=== PATIENT | male | born 1945 | race Caucasian/White ===

== ENCOUNTER 2016-05-09 20:56 | Emergency (ER) | payer MEDICARE, OTHER ==
[2016-05-09 21:02] VITALS: BP 142/71; PULSE 60; RESP 18; TEMP 98; O2SAT 94
[2016-05-09] MEDS ORDERED: DIPHTH/TETANUS/ACEL PERTUSSIS (BOOSTER) 0.5 ML VIAL/PFS IM ONE (21:15)
[2016-05-09] MEDS ORDERED: ceFAZolin INJ 1,000 MG in ceFAZolin 2 GM PREMIX 50 ML IV ONE (21:15)
[2016-05-09] MEDS ORDERED: MORPHINE SULFATE 4 MG/ML INJ IV ONE (21:15)
[2016-05-09] MEDS ORDERED: SODIUM CHLORIDE 0.9% FLUSH 5 ML FLUSH IVF PRN (21:15)
[2016-05-09] MEDS ORDERED: SYMB80AE INH (21:38)
[2016-05-09] MEDS ORDERED: LISI-519 PO (21:38)
[2016-05-09] MEDS ORDERED: MOBI7.5T PO (21:38)
[2016-05-09 21:39] VITALS: RESP 18; O2SAT 96
[2016-05-09 21:41] LABS: AUTOMATED NEUTROPHIL # 2.9 TH/MM3 (1.8-7.7); BASOPHIL % 0.5 % (0.0-2.0); EOSINOPHIL # 0.7 TH/MM3 (0-0.4); EOSINOPHIL % 8.2 % (0.0-4.0); HEMATOCRIT 42.8 % (39.0-51.0); LYMPH % 48.5 % (9.0-44.0); LYMPHOCYTE # 3.9 TH/MM3 (1.0-4.8); MEAN CELL VOLUME 87.5 FL (80.0-100.0); MEAN CORPUSCULAR HEMOGLOBIN 30.1 PG (27.0-34.0); MEAN CORPUSCULAR HGB CONC 34.4 % (32.0-36.0); MONO % 6.6 % (0.0-8.0); NEUT % 36.2 % (16.0-70.0); PLATELET COUNT 192 TH/MM3 (150-450); RED CELL DISTRIBUTION WIDTH 13.5 % (11.6-17.2)
[2016-05-09 21:51] LABS: APTT (PATIENT) 25.2 SEC (24.3-30.1); HEMO FLAGS AUTO DIFF; INTERNATIONAL NORMALIZED RATIO 0.9 RATIO; PROTHROMBIN TIME - PATIENT 10.4 SEC (9.8-11.6)
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
[2016-05-09 22:37] LABS: BICARBONATE 25.8 MEQ/L (21.0-32.0); POTASSIUM 3.2 MEQ/L (3.5-5.1)
[2016-05-09 23:03] LABS: SCAN/DIFF AUTO DIFF CONFIRMED
[2016-05-09] MEDS ORDERED: LIDOCAINE 1%/EPINEPHrine 1:100,000 SOLN 20 ML VIAL INFIL ONE (23:15)
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
== END 2016-05-10 08:46 | disposition home or self-care (01) ==
LOC: NEPC 20:56
DX: S01.112A Laceration without foreign body of left eyelid and periocular area, initial encounter (principal); S09.90XA Unspecified injury of head, initial encounter; I10 Essential (primary) hypertension; R10.2 Pelvic and perineal pain; F10.129 Alcohol abuse with intoxication, unspecified; Y90.8 Blood alcohol level of 240 mg/100 ml or more; J44.9 Chronic obstructive pulmonary disease, unspecified; Z72.0 Tobacco use; Z23 Encounter for immunization; V19.9XXA Pedal cyclist (driver) (passenger) injured in unspecified traffic accident, initial encounter; Y93.55 Activity, bike riding; Y92.9 Unspecified place or not applicable
CPT/HCPCS: 12011; 70450; 70486; 71010; 72125; 72170; 80048; 80320; 85025; 85610; 85730; 90471; 90715; 96374; 96375; 99285; J0690; J2270; L0150

== ENCOUNTER 2016-06-08 18:46 | Inpatient (IN) | payer MEDICARE, MEDICAID ==
[~2016-06-08] VITALS: Ht 165.1 cm; Wt 50.0 kg
[2016-06-08] VITALS (7 sets, daily range): BP systolic 137–234; BP diastolic 65–102; PULSE 75–102; RESP 17–28; TEMP 98–98.3; O2SAT 98–99
[~2016-06-08 18:46] MED LIST: LISI-519 PO; MOBI7.5T PO; SYMB80AE INH
--- NOTE | 2016-06-08 19:01 | PD ---
HPI Chief Complaint: Respiratory Distress Time Seen by Provider: 18:51 Travel History International Travel<30 days: No Contact w/Intl Traveler<30days: No Traveled to known affect area: No History of Present Illness HPI 71-year-old male complains of shortness of breath. Patient states that he started having persistent cough and shortness of breath for the past 2 days. Patient denies fever chills. Patient denies any chest pain. Patient has history of COPD. Patient is a smoker. EMS was called. Patient was given albuterol nebulizer treatment 2 and Solu-Medrol [address] to the ED. Patient denies any fever chills. Patient has nebulizer at home. Patient states that he only used once in a while. Patient used albuterol nebulizer treatment once this morning. Patient has history of hypertension. PFSH Past Medical History Asthma: Yes Cardiovascular Problems: Yes COPD: Yes Hepatitis: Yes (c) Hypertension: Yes Respiratory: Yes (COPD ) Past Surgical History Surgical History: No Previous Surgery Social History Alcohol Use: Yes (rarely but drank today for his birthday) Tobacco Use: Yes Substance Use: No Allergies-Medications (Allergen,Severity, Reaction): Coded Allergies: No Known Allergies (Unverified , 05/09/16) Reported Meds & Prescriptions Reported Meds & Active Scripts Active Reported Symbicort Inh (Budesonide/Formoterol Fumarate) 80-4.5 Mcg/Act Aero 1 Puff INH Q12HR Mobic (Meloxicam) 7.5 Mg Tab 7.5 Mg PO DAILY Lisinopril 5 Mg Tab 5 Mg PO DAILY Review of Systems General / Constitutional: No: Fever Eyes: No: Visual changes HENT: No: Headaches Cardiovascular: No: Chest Pain or Discomfort Respiratory: Positive: Cough, Shortness of Breath, Wheezing Gastrointestinal: No: Abdominal Pain Genitourinary: No: Dysuria Musculoskeletal: No: Pain Skin: No Rash Neurologic: No: Weakness Psychiatric: No: Depression Endocrine: No: Polydipsia Hematologic/Lymphatic: No: Easy Bruising Physical Exam Narrative GENERAL: Well-nourished, well-developed patient. SKIN: Warm and dry. HEAD: Normocephalic. EYES: No scleral icterus. No injection or drainage. NECK: Supple, trachea midline. No JVD or lymphadenopathy. CARDIOVASCULAR: Regular rate and rhythm without murmurs, gallops, or rubs. RESPIRATORY: Breath sounds equal bilaterally. No accessory muscle use. Patient has moderate expiratory wheezes bilaterally. Few rhonchi at the bases. GASTROINTESTINAL: Abdomen soft, non-tender, nondistended. MUSCULOSKELETAL: No cyanosis, or edema. BACK: Nontender without obvious deformity. No CVA tenderness. Neurologic exam normal. Data Data Last Documented VS Vital Signs Date Time Temp Pulse Resp B/P Pulse Ox O2 Delivery O2 Flow Rate FiO2 06/08/16 20:00 80 22 177/77 99 Nasal Cannula 4 06/08/16 18:52 98.3 Orders Complete Blood Count With Diff (06/08/16 18:51) Comprehensive Metabolic Panel (06/08/16 18:51) B-Type Natriuretic Peptide (06/08/16 18:51) Act Partial Throm Time (Ptt) (06/08/16 18:51) Prothrombin Time / Inr (Pt) (06/08/16 18:51) Arterial Blood Gas (Abg) (06/08/16 18:51) Influenzae A/B Antigen (06/08/16 18:51) Blood Culture (06/08/16 18:51) Iv Access Insert/Monitor (06/08/16 18:51) Electrocardiogram (06/08/16 18:51) Ecg Monitoring (06/08/16 18:51) Oximetry (06/08/16 18:51) Oxygen Administration (06/08/16 18:51) Chest, Single Ap (06/08/16 18:51) Albuterol-Ipratropium Neb (Duoneb Neb) (06/08/16 19:00) Resp Bipap / Cpap Non Invas Vt (06/08/16 18:51) Hydralazine Inj (Apresoline Inj) (06/08/16 19:15) Ceftriaxone Inj (Rocephin Inj) (06/08/16 21:00) Azithromycin Inj (Zithromax Inj) (06/08/16 21:00) Labs Laboratory Tests Test 06/08/16 06/08/16 19:02 19:30 White Blood Count 16.7 TH/MM3 Red Blood Count 4.61 MIL/MM3 Hemoglobin 13.9 GM/DL Hematocrit 41.2 % Mean Corpuscular Volume 89.3 FL Mean Corpuscular Hemoglobin 30.1 PG Mean Corpuscular Hemoglobin 33.7 % Concent Red Cell Distribution Width 14.1 % Platelet Count 192 TH/MM3 Mean Platelet Volume 10.9 FL Neutrophils (%) (Auto) 57.5 % Lymphocytes (%) (Auto) 23.0 % Monocytes (%) (Auto) 9.6 % Eosinophils (%) (Auto) 9.5 % Basophils (%) (Auto) 0.4 % Neutrophils # (Auto) 9.6 TH/MM3 Lymphocytes # (Auto) 3.8 TH/MM3 Monocytes # (Auto) 1.6 TH/MM3 Eosinophils # (Auto) 1.6 TH/MM3 Basophils # (Auto) 0.1 TH/MM3 CBC Comment DIFF FINAL Differential Comment Prothrombin Time 10.0 SEC Prothromb Time International 0.9 RATIO Ratio Activated Partial 27.3 SEC Thromboplast Time Sodium Level 141 MEQ/L Potassium Level 3.6 MEQ/L Chloride Level 103 MEQ/L Carbon Dioxide Level 30.8 MEQ/L Anion Gap 7 MEQ/L Blood Urea Nitrogen 22 MG/DL Creatinine 1.00 MG/DL Estimat Glomerular Filtration 74 ML/MIN Rate Random Glucose 68 MG/DL Calcium Level 9.4 MG/DL Total Bilirubin 0.2 MG/DL Aspartate Amino Transf 31 U/L (AST/SGOT) Alanine Aminotransferase 61 U/L (ALT/SGPT) Alkaline Phosphatase 95 U/L B-Type Natriuretic Peptide 90 PG/ML Total Protein 7.7 GM/DL Albumin 3.7 GM/DL Blood Gas Puncture Site RT RADIAL Blood Gas Patient Temperature 98.6 Blood Gas HCO3 27 mmol/L Blood Gas Base Excess 2.1 mmol/L Blood Gas Oxygen Saturation 95 % Arterial Blood pH 7.38 Arterial Blood Partial 46 mmHg Pressure CO2 Arterial Blood Partial 114 mmHG Pressure O2 Arterial Blood Oxygen Content 18.2 Vol % Arterial Blood 2.0 % Carboxyhemoglobin Arterial Blood Methemoglobin 1.9 % Blood Gas Hemoglobin 13.6 G/DL Oxygen Delivery Device NASAL CANNULA Blood Gas Liter Flow 4 L/M MDM Medical Decision Making Medical Screen Exam Complete: Yes Emergency Medical Condition: Yes Interpretation(s) 2035 PM. ABG pH 7.38. PCO2 46. PO2 114. Patient's on 4 L nasal cannula. CBC , WBC 16.7. Normal differential. CMP within normal limit. BUN 22. Influenza AB antigen negative. Differential Diagnosis Differential diagnosis including acute exacerbation COPD, bronchitis, pneumonia , PE, pneumothorax. Narrative Course 71-year-old male with shortness of breath, coughing wheezing. History of COPD. Patient is a smoker. Patient was given albuterol treatment 2 and Solu- Medrol [address] IV [address] the way to ED. Albuterol with Atrovent unit dose treatment 2. Rocephin 1 g IV. Zithromax 500 mg IV. Diagnosis Primary Impression: COPD with acute exacerbation Admitting Information Admitting Physician Requests: Admit Tadeo Newsome MD Jun 08, 2016 19:01
[2016-06-08] MEDS: RESP: ALBUTEROL 2.5 MG/IPRATROPIUM 0.5 MG NEB (SCH) INH (19:05)
[2016-06-08] MEDS ORDERED: hydrALAZINE HCL 20 MG/ML VIAL IV PUSH ONE (19:15)
[2016-06-08 19:23] LABS: AUTOMATED NEUTROPHIL # 9.6 TH/MM3 (1.8-7.7); BASOPHIL # 0.1 TH/MM3 (0-0.2); BASOPHIL % 0.4 % (0.0-2.0); EOSINOPHIL # 1.6 TH/MM3 (0-0.4); EOSINOPHIL % 9.5 % (0.0-4.0); HEMATOCRIT 41.2 % (39.0-51.0); HEMO FLAGS DIFF FINAL; LYMPHOCYTE # 3.8 TH/MM3 (1.0-4.8); MEAN CELL VOLUME 89.3 FL (80.0-100.0); MEAN CORPUSCULAR HEMOGLOBIN 30.1 PG (27.0-34.0); MEAN CORPUSCULAR HGB CONC 33.7 % (32.0-36.0); MONO % 9.6 % (0.0-8.0); NEUT % 57.5 % (16.0-70.0); PLATELET COUNT 192 TH/MM3 (150-450); RED BLOOD COUNT 4.61 MIL/MM3 (4.50-5.90); RED CELL DISTRIBUTION WIDTH 14.1 % (11.6-17.2); WHITE BLOOD COUNT 16.7 TH/MM3 (4.0-11.0)
[2016-06-08 19:34] LABS: APTT (PATIENT) 27.3 SEC (24.3-30.1); INTERNATIONAL NORMALIZED RATIO 0.9 RATIO
[2016-06-08 19:40] LABS: ANION GAP 7 MEQ/L (5-15); AST (GOT) 31 U/L (15-37); BICARBONATE 30.8 MEQ/L (21.0-32.0); BLOOD UREA NITROGEN 22 MG/DL (7-18); CHLORIDE 103 MEQ/L (98-107); GLOMERULAR FILTRATION RATE 74 ML/MIN (>89); POTASSIUM 3.6 MEQ/L (3.5-5.1); SODIUM (NA) 141 MEQ/L (136-145)
[2016-06-08 19:43] LABS: ALKALINE PHOSPHATASE 95 U/L (45-117); ALT (GPT) 61 U/L (12-78); TOTAL BILIRUBIN ADULT 0.2 MG/DL (0.2-1.0)
[2016-06-08 19:45] LABS: BLOOD GAS BASE EXCESS 2.1 mmol/L (-2-2); BLOOD GAS HCO3 27 mmol/L (22-26); BLOOD GAS METHEMOGLOBIN 1.9 % (0-2); BLOOD GAS O2 HGB SATURATION 95 % (90-100); BLOOD GAS OXYGEN CONTENT 18.2 Vol % (12.0-20.0); BLOOD GAS PCO2 46 mmHg (38-42); BLOOD GAS PO2 114 mmHG (61-120); BLOOD GAS TOTAL HGB 13.6 G/DL (12.0-16.0); CRITICAL VALUE NO; DRAW SITE RT RADIAL; LITER FLOW 4 L/M; NUMBER OF ARTERIAL PUNCTURES 1; OXYGEN DEVICE NASAL CANNULA; STAT YES; TEMP CORR TO 98.6; ULNAR PULSE PRESENT
[2016-06-08] MEDS ORDERED: AZITHROMYCIN INJ 500 MG in SODIUM CHLOR 0.9% 250 ML INJ 250 ML IV ONE (21:00)
[2016-06-08] MEDS ORDERED: cefTRIAXone INJ 1,000 MG in SODIUM CHLORIDE 0.9% INJ 100 ML IV ONE (21:00)
[2016-06-08] MEDS ORDERED: ACETAMINOPHEN 325 MG TAB PO PRN (21:15)
[2016-06-08] MEDS ORDERED: SODIUM CHLORIDE 0.9% FLUSH 5 ML FLUSH IVF PRN (21:15)
[2016-06-08] MEDS ORDERED: ONDANSETRON HCL 4 MG/2 ML VIAL IV PRN (21:15)
[2016-06-08] MEDS ORDERED: RESP: ALBUTEROL 2.5 MG/3 ML NEB (PRN) NEB (21:15)
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
[2016-06-08] MEDS ORDERED: NALOXONE HCL 0.4 MG/ML AMP IV PRN (23:00)
[2016-06-08] MEDS ORDERED: SODIUM CHLORIDE 0.9% FLUSH 5 ML FLUSH FLUSH PRN (23:00)
[2016-06-08] MEDS: ENOXAPARIN SODIUM 40 MG/0.4 ML SYRINGE SQ SCH (23:34)
[2016-06-08] MEDS: methylPREDNISolone SOD SUCC 40 MG/1 ML VIAL IV PUSH SCH (23:34)
[2016-06-09] VITALS (8 sets, daily range): BP systolic 132–166; BP diastolic 60–79; PULSE 68–98; RESP 17–20; TEMP 95.8–98.5; O2SAT 91–99
[2016-06-09] MEDS: RESP: ALBUTEROL 2.5 MG/IPRATROPIUM 0.5 MG NEB (SCH) NEB ×7 (01:09→23:38)
[2016-06-09] MEDS: methylPREDNISolone SOD SUCC 40 MG/1 ML VIAL IV PUSH SCH ×4 (06:22→23:11)
[2016-06-09] MEDS ORDERED: SODIUM CHLORIDE 0.9% FLUSH 5 ML FLUSH IVF SCH (09:00)
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
[2016-06-09] MEDS ORDERED: guaiFENesin E.R. 600 MG TAB PO ONE (09:30)
[2016-06-09] MEDS: SODIUM CHLORIDE 0.9% FLUSH 5 ML FLUSH FLUSH SCH ×2 (10:58→20:20)
[2016-06-09] MEDS: LISINOPRIL 5 MG TAB PO SCH (11:04)
[2016-06-09] MEDS: BUDESONIDE-FORMOTEROL 80/4.5 MCG INHALER INH SCH ×2 (11:29→21:48)
[2016-06-09] MEDS: MELOXICAM 7.5 MG TAB PO SCH ×2 (11:29→13:53)
--- NOTE | 2016-06-09 11:49 | EKG ---
Date Performed: 06/08/2016 Time Performed: 18:56:38 PTAGE: 71 years EKG: Sinus rhythm WITH OCCASIONAL VENTRICULAR PREMATURE COMPLEXES MARKED LEFT AXIS DEVIATION MODERATE ST DEPRESSION AB NORMAL ECG NO PREVIOUS TRACING DOCTOR: Rodolfo Nunn Interpretating Date/Time 06/09/2016 11:45:24
[2016-06-09] MEDS: BENZONATATE 100 MG CAP PO PRN (13:53)
[2016-06-09] MEDS: AZITHROMYCIN INJ 500 MG in SODIUM CHLOR 0.9% 250 ML INJ 250 ML IV SCH (20:20)
[2016-06-09] MEDS: guaiFENesin E.R. 600 MG TAB PO SCH (20:20)
[2016-06-09] MEDS: cefTRIAXone INJ 1,000 MG in SODIUM CHLORIDE 0.9% INJ 100 ML IV SCH (21:47)
[2016-06-09] MEDS: ENOXAPARIN SODIUM 40 MG/0.4 ML SYRINGE SQ SCH (23:10)
[2016-06-10] VITALS (12 sets, daily range): BP systolic 152–195; BP diastolic 63–92; PULSE 87–102; RESP 17–20; TEMP 95.3–98.2; O2SAT 94–99
[2016-06-10] MEDS: RESP: ALBUTEROL 2.5 MG/IPRATROPIUM 0.5 MG NEB (SCH) NEB ×6 (04:14→23:48)
[2016-06-10] MEDS: methylPREDNISolone SOD SUCC 40 MG/1 ML VIAL IV PUSH SCH ×4 (06:21→23:37)
[2016-06-10] MEDS: guaiFENesin E.R. 600 MG TAB PO SCH ×2 (08:34→22:21)
[2016-06-10] MEDS: LISINOPRIL 5 MG TAB PO SCH (08:34)
[2016-06-10] MEDS: ASPIRIN EC 81 MG TABEC PO SCH (08:34)
[2016-06-10] MEDS: SODIUM CHLORIDE 0.9% FLUSH 5 ML FLUSH FLUSH SCH ×2 (08:35→22:22)
[2016-06-10] MEDS: BUDESONIDE-FORMOTEROL 80/4.5 MCG INHALER INH SCH ×2 (08:35→22:22)
--- NOTE | 2016-06-10 13:55 | HHI.PR ---
Subjective Remarks still with cough wheezing still weak no cp has mild pain LLQ, having BMs wants to go home, but understands he's not ready no fever Objective Objective Results - Vital Signs Date Time Temp Pulse Resp B/P Pulse Ox O2 Delivery O2 Flow Rate FiO2 06/10/16 12:00 96.9 96 18 161/70 99 06/10/16 08:33 Nasal Cannula 3.00 Humidified 06/10/16 08:00 98.1 96 17 156/75 99 06/10/16 07:33 96 Nasal Cannula 3.00 06/10/16 04:16 98 Nasal Cannula 2.00 06/10/16 04:00 97.8 102 18 152/68 97 06/10/16 02:30 162/70 06/10/16 00:00 97.7 93 20 176/92 94 06/09/16 23:39 91 Nasal Cannula 2.00 06/09/16 20:49 98 Nasal Cannula 2.00 06/09/16 20:33 97 Nasal Cannula 2.00 Humidified 06/09/16 20:00 97.0 82 20 166/79 97 06/09/16 16:00 98.5 98 17 141/63 96 I/O 06/09/16 06/09/16 06/09/16 06/10/16 06/10/16 06/10/16 07:00 15:00 23:00 07:00 15:00 23:00 Intake Total 530 ml 360 ml 470 ml 120 ml 0 ml Balance 530 ml 360 ml 470 ml 120 ml 0 ml Intake Oral 280 ml 360 ml 120 ml 120 ml IV Total 250 ml 350 ml 0 ml # Voids 1 3 1 1 # Bowel Movements 0 1 0 0 Result Diagram: 06/08/16190106/08/161901 Imaging Last Impressions Chest X-Ray 06/08/16 1851 Signed Impressions: Service Date/Time: Wednesday, June 08, 2016 20:02 - CONCLUSION: No acute disease. Romel Ya MD Other Results Date/Time Procedure Status Source Growth 06/08/16 19:11 Influenza Types A,B Antigen (SONAL) - Final Complete Nasal Washing NEGATIVE FOR FLU A AND B ANTIGEN.... 06/08/16 19:02 Aerobic Blood Culture - Preliminary Resulted Blood Peripheral NO GROWTH IN 2 DAYS 06/08/16 19:02 Anaerobic Blood Culture - Preliminary Resulted Blood Peripheral NO GROWTH IN 2 DAYS ROS General: Weakness HEENT: No: Sore Throat, Dysphagia Cardiac: No: Chest Pain, Edema, Palpitations Pulmonary: Cough, SOB, Wheezing GI: Abdominal Pain, No: BM, Diarrhea, N/V /WEB SITE MANAGER: No: Dysuria, Urgency Neuro/MS: No: Lightheaded, Confusion Psych: No: Anxiety, Depression Skin: No: Itching, Rash Physical Exam Physical Exam GENERAL: This is a well-nourished, well-developed patient, in no apparent distress. SKIN: No rashes, ecchymoses or lesions. Cool and dry. HEAD: Atraumatic. Normocephalic. No temporal or scalp tenderness. EYES: Pupils equal round and reactive. Extraocular motions intact. No scleral icterus. No injection or drainage. ENT: Nose without bleeding, purulent drainage or septal hematoma. Throat without erythema, tonsillar hypertrophy or exudate. Uvula midline. Airway patent. NECK: Trachea midline. No JVD or lymphadenopathy. Supple, nontender, no meningeal signs. CARDIOVASCULAR: Regular rate and rhythm without murmurs, gallops, or rubs. RESPIRATORY: Scattered rhonchi, expiratory wheezes GASTROINTESTINAL: Abdomen soft, slightly tender to palpation left lower abdomen. No masses palpated. Nondistended. No hepato-splenomegaly, or palpable masses. No guarding. MUSCULOSKELETAL: Extremities without clubbing, cyanosis, or edema. No joint tenderness, effusion, or edema noted. No calf tenderness. Negative Homans sign bilaterally. NEUROLOGICAL: Awake and alert. Cranial nerves II through XII intact. Motor and sensory grossly within normal limits. Five out of 5 muscle strength in all muscle groups. Normal speech. A/P Diagnosis: (1) COPD with acute exacerbation (2) Leukocytosis (3) Tobacco abuse (4) Hypertension (5) History of ETOH abuse (6) Liver disease Assessment and Plan 71-year-old male with history of COPD and tobacco abuse. Presented to emergency room with increased cough, wheezing. Admitted with COPD exacerbation Continue DuoNeb's -Solu-Medrol 40 mg IV every 6 -Continue with empiric antibiotics -Tessalon Perles -Mucinex 200 mg by mouth twice a day -Continue Symbicort -Tobacco abuse counseling completed Tobacco abuse -Tobacco abuse counseling completed, -Declined nicotine patch Hypertension, stable Continue home medications History of alcohol abuse, endorses history of liver disease Needs to abstain from drinking LFTs stable Complaining of lower abdominal pain, left quadrant, having regular bowel movements, no abnormality noted during assessment. Patient states he was due to have some type of GI procedure as outpatient We'll check KUB Lovenox for DVT prophylaxis Patient not ready for discharge, remained symptomatic with increased wheezing and cough, continue with above treatment D/W RN D/W Dr. Lorenz D/W pt This patient was seen by myself and , this note is written on his behalf Problem Qualifiers (1) Leukocytosis: Qualified Code: D72.829 - Leukocytosis, unspecified type (2) Hypertension: Qualified Code: I10 - Essential hypertension Chelsea Diez Jun 10, 2016 13:55
--- NOTE | 2016-06-10 17:07 | RADRPT ---
EXAM DATE/TIME: 06/10/2016 16:44 [facility] COMPARISON: No previous studies available for comparison. INDICATIONS : Lower abdominal pain that started today. MEDICAL HISTORY : None. SURGICAL HISTORY : None. ENCOUNTER: Initial ACUITY: 1 day PAIN SCORE: 5/10 LOCATION: Bilateral lower abdomen. FINDINGS: Supine view of the abdomen was performed. Gas and stool in a segment in the colon. There are multiple loops of nondilated air-containing small bowel in midabdomen.. No abnormal masses, calcifications, or organomegaly is seen. The osseous structures are unremarkable. CONCLUSION: Mildly nonspecific, nonobstructive bowel gas pattern which may represent mild ileus. Eliazar Ellsworth MD on June 10, 2016 at 17:04 Board Certified Radiologist. This report was verified electronically.
[2016-06-10] MEDS: cloNIDine HCL 0.1 MG TAB PO PRN (22:21)
[2016-06-10] MEDS: AZITHROMYCIN INJ 500 MG in SODIUM CHLOR 0.9% 250 ML INJ 250 ML IV SCH (22:21)
[2016-06-10] MEDS: cefTRIAXone INJ 1,000 MG in SODIUM CHLORIDE 0.9% INJ 100 ML IV SCH (22:22)
[2016-06-10] MEDS: ENOXAPARIN SODIUM 40 MG/0.4 ML SYRINGE SQ SCH (23:37)
[2016-06-11] VITALS (9 sets, daily range): BP systolic 162–184; BP diastolic 72–93; PULSE 72–98; RESP 17–20; TEMP 96.3–98.7; O2SAT 91–97
[2016-06-11] MEDS: RESP: ALBUTEROL 2.5 MG/IPRATROPIUM 0.5 MG NEB (SCH) NEB ×5 (03:13→20:09)
[2016-06-11] MEDS: methylPREDNISolone SOD SUCC 40 MG/1 ML VIAL IV PUSH SCH ×3 (06:05→17:09)
[2016-06-11] MEDS: cloNIDine HCL 0.1 MG TAB PO PRN ×2 (06:05→17:09)
[2016-06-11 06:42] LABS: HEMATOCRIT 37.6 % (39.0-51.0); MEAN CELL VOLUME 88.3 FL (80.0-100.0); MEAN CORPUSCULAR HEMOGLOBIN 29.6 PG (27.0-34.0); MEAN CORPUSCULAR HGB CONC 33.5 % (32.0-36.0); PLATELET COUNT 212 TH/MM3 (150-450); RED BLOOD COUNT 4.26 MIL/MM3 (4.50-5.90); RED CELL DISTRIBUTION WIDTH 13.9 % (11.6-17.2); REVIEW FLAG FINAL; WHITE BLOOD COUNT 28.7 TH/MM3 (4.0-11.0)
[2016-06-11 07:03] LABS: BICARBONATE 24.4 MEQ/L (21.0-32.0)
[2016-06-11] MEDS: SODIUM CHLORIDE 0.9% FLUSH 5 ML FLUSH FLUSH SCH ×2 (08:34→21:28)
[2016-06-11] MEDS: ASPIRIN EC 81 MG TABEC PO SCH (08:34)
[2016-06-11] MEDS: LISINOPRIL 5 MG TAB PO SCH (08:34)
[2016-06-11] MEDS: MELOXICAM 7.5 MG TAB PO SCH (08:34)
[2016-06-11] MEDS: guaiFENesin E.R. 600 MG TAB PO SCH ×2 (08:34→21:24)
[2016-06-11] MEDS: BUDESONIDE-FORMOTEROL 80/4.5 MCG INHALER INH SCH ×2 (08:35→21:28)
--- NOTE | 2016-06-11 11:26 | HHI.PR ---
Subjective Remarks still with cough dry wheezing less than yesterday still weak no cp has mild pain LLQ, having BMs wants to go home, but understands he's not ready no fever Review of system for 12 point system otherwise unremarkable Objective Objective Results - Vital Signs Date Time Temp Pulse Resp B/P Pulse Ox O2 Delivery O2 Flow Rate FiO2 06/11/16 08:33 Nasal Cannula 3.00 21 Humidified 06/11/16 08:00 97.2 81 18 163/87 94 06/11/16 07:44 91 21 06/11/16 04:00 97.6 83 18 173/81 97 06/11/16 00:00 97.1 72 20 162/72 97 06/10/16 23:48 96 Nasal Cannula 1.00 06/10/16 22:20 Nasal Cannula 2.00 Humidified 06/10/16 22:20 87 06/10/16 20:00 98.2 87 20 195/91 96 06/10/16 16:00 95.3 96 18 157/63 99 06/10/16 15:40 95 Nasal Cannula 2.00 06/10/16 12:00 96.9 96 18 161/70 99 I/O 06/10/16 06/10/16 06/10/16 06/11/16 06/11/16 06/11/16 07:00 15:00 23:00 07:00 15:00 23:00 Intake Total 120 ml 240 ml 480 ml 470 ml Output Total 200 ml Balance 120 ml 240 ml 280 ml 470 ml Intake Oral 120 ml 240 ml 480 ml 120 ml IV Total 0 ml 0 ml 350 ml Output Urine Total 200 ml # Voids 1 4 1 # Bowel Movements 0 0 0 0 Result Diagram: 06/11/16 0552 06/11/16 0552 Imaging Last Impressions Chest X-Ray 06/08/16 1851 Signed Impressions: Service Date/Time: Wednesday, June 08, 2016 20:02 - CONCLUSION: No acute disease. Romel Ya MD Other Results Laboratory Tests Test 06/11/16 05:52 White Blood Count 28.7 Red Blood Count 4.26 Hemoglobin 12.6 Hematocrit 37.6 Mean Corpuscular Volume 88.3 Mean Corpuscular Hemoglobin 29.6 Mean Corpuscular Hemoglobin 33.5 Concent Red Cell Distribution Width 13.9 Platelet Count 212 Mean Platelet Volume 10.8 Sodium Level 140 Potassium Level 4.0 Chloride Level 107 Carbon Dioxide Level 24.4 Anion Gap 9 Blood Urea Nitrogen 35 Creatinine 0.96 Estimat Glomerular Filtration 78 Rate Random Glucose 114 Calcium Level 9.4 Date/Time Procedure Status Source Growth 06/08/16 19:11 Influenza Types A,B Antigen (SONAL) - Final Complete Nasal Washing NEGATIVE FOR FLU A AND B ANTIGEN.... 06/08/16 19:02 Aerobic Blood Culture - Preliminary Resulted Blood Peripheral NO GROWTH IN 3 DAYS 06/08/16 19:02 Anaerobic Blood Culture - Preliminary Resulted Blood Peripheral NO GROWTH IN 3 DAYS Physical Exam Physical Exam ROS General: Weakness HEENT: No: Sore Throat, Dysphagia Cardiac: No: Chest Pain, Edema, Palpitations Pulmonary: Cough, SOB, Wheezing GI: Abdominal Pain, No: BM, Diarrhea, N/V /PRE SALES ARCHITECT: No: Dysuria, Urgency Neuro/MS: No: Lightheaded, Confusion Psych: No: Anxiety, Depression Skin: No: Itching, Rash Physical Exam GENERAL: This is a well-nourished, well-developed patient, in no apparent distress. SKIN: No rashes, ecchymoses or lesions. Cool and dry. HEAD: Atraumatic. Normocephalic. No temporal or scalp tenderness. EYES: Pupils equal round and reactive. Extraocular motions intact. No scleral icterus. No injection or drainage. ENT: Nose without purulent drainage. Airway patent. NECK: Trachea midline. No JVD or lymphadenopathy. Supple, nontender, no meningeal signs. CARDIOVASCULAR: Regular rate and rhythm without murmurs, gallops, or rubs. RESPIRATORY: Scattered rhonchi, expiratory wheezes GASTROINTESTINAL: Abdomen soft, slightly tender to palpation left lower abdomen. No masses palpated. Nondistended. No hepato-splenomegaly, or palpable masses. No guarding. MUSCULOSKELETAL: Extremities without clubbing, cyanosis, or edema. No joint tenderness, effusion, or edema noted. No calf tenderness. Negative Homans sign bilaterally. NEUROLOGICAL: Awake and alert. Cranial nerves II through XII intact. Motor and sensory grossly within normal limits. Five out of 5 muscle strength in all muscle groups. Normal speech. A/P Assessment and Plan (1) COPD with acute exacerbation (2) Leukocytosis (3) Tobacco abuse (4) Hypertension (5) History of ETOH abuse (6) Liver disease Plan 71-year-old male with history of COPD and tobacco abuse. Presented to emergency room with increased cough, wheezing. Admitted with COPD exacerbation Continue DuoNeb's -Solu-Medrol 40 mg IV every 6 -Continue with empiric antibiotics -Tessalon Perles -Mucinex 200 mg by mouth twice a day -Continue Symbicort -Tobacco abuse counseling completed Tobacco abuse -Tobacco abuse counseling completed, -Declined nicotine patch Hypertension, slightly high will monitor Continue home medications History of alcohol abuse, endorses history of liver disease Needs to abstain from drinking LFTs stable Complaining of lower abdominal pain, left quadrant, having regular bowel movements, no abnormality noted during assessment. Patient states he was due to have some type of GI procedure as outpatient Mild ileus on KUB. Dulcolax suppository. Continue current management and monitor Lovenox for DVT prophylaxis Patient not ready for discharge, remained symptomatic with increased wheezing and cough, continue with above treatment D/W RN D/W pt Munir Lorenz MD Jun 11, 2016 11:26
[2016-06-11] MEDS: AZITHROMYCIN INJ 500 MG in SODIUM CHLOR 0.9% 250 ML INJ 250 ML IV SCH (21:23)
[2016-06-11] MEDS: ENOXAPARIN SODIUM 40 MG/0.4 ML SYRINGE SQ SCH (21:24)
[2016-06-11] MEDS: BENZONATATE 100 MG CAP PO PRN (21:24)
[2016-06-11] MEDS: cefTRIAXone INJ 1,000 MG in SODIUM CHLORIDE 0.9% INJ 100 ML IV SCH (21:30)
[2016-06-12] VITALS (11 sets, daily range): BP systolic 130–189; BP diastolic 70–102; PULSE 57–88; RESP 16–20; TEMP 97.4–98.2; O2SAT 94–99
[2016-06-12] MEDS: methylPREDNISolone SOD SUCC 40 MG/1 ML VIAL IV PUSH SCH ×4 (00:10→17:46)
[2016-06-12] MEDS: RESP: ALBUTEROL 2.5 MG/IPRATROPIUM 0.5 MG NEB (SCH) NEB ×6 (00:40→20:27)
[2016-06-12] MEDS: guaiFENesin E.R. 600 MG TAB PO SCH ×2 (08:54→20:38)
[2016-06-12] MEDS: MELOXICAM 7.5 MG TAB PO SCH (08:54)
[2016-06-12] MEDS: ASPIRIN EC 81 MG TABEC PO SCH (08:55)
[2016-06-12] MEDS: LISINOPRIL 5 MG TAB PO SCH (08:55)
[2016-06-12] MEDS: SODIUM CHLORIDE 0.9% FLUSH 5 ML FLUSH FLUSH SCH ×2 (08:55→20:38)
[2016-06-12] MEDS: BUDESONIDE-FORMOTEROL 80/4.5 MCG INHALER INH SCH ×2 (08:59→20:38)
--- NOTE | 2016-06-12 10:35 | HHI.PR ---
Subjective Remarks Patient has left-sided abdominal pain with some swelling Head normal bowel movement this morning No genitourinary symptoms No nausea vomiting still with some cough dry wheezing less than yesterday still weak no cp no fever Review of system for 12 point system otherwise unremarkable Objective Objective Results - Vital Signs Date Time Temp Pulse Resp B/P Pulse Ox O2 Delivery O2 Flow Rate FiO2 06/12/16 09:11 96 Nasal Cannula 1.00 Humidified 06/12/16 07:29 97 Nasal Cannula 1.00 06/12/16 04:14 97.7 77 18 164/78 98 06/12/16 03:29 97 Nasal Cannula 2.00 06/12/16 00:42 96 Nasal Cannula 2.00 06/12/16 00:07 97.4 86 18 163/78 94 06/11/16 20:08 97.6 79 18 165/77 95 06/11/16 17:09 178/89 06/11/16 16:31 95 Nasal Cannula 2.00 06/11/16 16:00 96.3 88 20 184/93 94 06/11/16 12:00 98.7 98 17 180/79 95 I/O 06/11/16 06/11/16 06/11/16 06/12/16 06/12/16 06/12/16 07:00 15:00 23:00 07:00 15:00 23:00 Intake Total 470 ml 340 ml 380 ml 380 ml Output Total 600 ml Balance 470 ml -260 ml 380 ml 380 ml Intake Oral 120 ml 340 ml 380 ml 380 ml IV Total 350 ml 0 ml Output Urine Total 600 ml # Voids 1 2 2 # Bowel Movements 0 1 Result Diagram: 06/11/16 0552 06/11/16 0552 Imaging Last Impressions Chest X-Ray 06/08/16 185 Signed Impressions: Service Date/Time: Wednesday, June 08, 2016 20:02 - CONCLUSION: No acute disease. Romel Ya MD Other Results Date/Time Procedure Status Source Growth 06/08/16 19:11 Influenza Types A,B Antigen (SONAL) - Final Complete Nasal Washing NEGATIVE FOR FLU A AND B ANTIGEN.... 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 SKIN: No rashes, ecchymoses or lesions. Cool and dry. HEAD: Atraumatic. Normocephalic. No temporal or scalp tenderness. EYES: Pupils equal round and reactive. Extraocular motions intact. No scleral icterus. No injection or drainage. ENT: Nose without purulent drainage. Airway patent. NECK: Trachea midline. No JVD or lymphadenopathy. Supple, nontender, no meningeal signs. CARDIOVASCULAR: Regular rate and rhythm without murmurs, gallops, or rubs. RESPIRATORY: Scattered rhonchi, scattered few expiratory wheezes GASTROINTESTINAL: Abdomen soft, tender to palpation left sided abdomen. Nondistended. No hepato-splenomegaly. No guarding. MUSCULOSKELETAL: Extremities without clubbing, cyanosis, or edema. No joint tenderness, effusion, or edema noted. No calf tenderness. Negative Homans sign bilaterally. NEUROLOGICAL: Awake and alert. Cranial nerves II through XII intact. Motor and sensory grossly within normal limits. Five out of 5 muscle strength in all muscle groups. Normal speech. A/P Assessment and Plan (1) COPD with acute exacerbation (2) Leukocytosis (3) Tobacco abuse (4) Hypertension (5) History of ETOH abuse (6) Liver disease Plan 71-year-old male with history of COPD and tobacco abuse. Presented to emergency room with increased cough, wheezing. Admitted with COPD exacerbation Continue DuoNeb's -Solu-Medrol 40 mg IV every 6 -Continue with empiric antibiotics -Tessalon Perles -Mucinex 200 mg by mouth twice a day -Continue Symbicort -Tobacco abuse counseling completed Tobacco abuse -Tobacco abuse counseling completed, -Declined nicotine patch Hypertension, slightly high will monitor Continue home medications History of alcohol abuse, endorses history of liver disease Needs to abstain from drinking LFTs stable Complaining of left-sided abdominal pain, left quadrant, having regular bowel movements, no abnormality noted during assessment. Patient states he was due to have some type of GI procedure as outpatient Mild ileus on KUB. Plan for CT abdomen. Morphine on a when necessary basis for pain. Continue current management and monitor Lovenox for DVT prophylaxis Patient not ready for discharge, remained symptomatic with increased wheezing and cough, continue with above treatment D/W RN D/W pt and at bedside Munir Lorenz MD Jun 12, 2016 10:35
[2016-06-12] MEDS ORDERED: DIATRIZOATE MEGLUM/DIATRIZOATE SOD 9 ML CUP PO ONE ×2 (11:15→12:00)
[2016-06-12] MEDS: FAMOTIDINE 20 MG TAB PO SCH ×2 (11:29→20:38)
[2016-06-12] MEDS: MORPHINE SULFATE 4 MG/ML INJ IV PUSH PRN ×2 (11:34→17:47)
[2016-06-12] MEDS: cloNIDine HCL 0.1 MG TAB PO PRN (11:43)
--- NOTE | 2016-06-12 14:54 | RADRPT ---
EXAM DATE/TIME: 06/12/2016 14:21 [facility] COMPARISON: No previous studies available for comparison. INDICATIONS : Abdomen pain, left side swelling and pain. ORAL CONTRAST: Prescribed oral contrast ingested. RADIATION DOSE: 4.54 CTDIvol (mGy) MEDICAL HISTORY : Hypertension. Chronic obstructive pulmonary disease. hepc SURGICAL HISTORY : None. ENCOUNTER: Initial ACUITY: 3 days PAIN SCALE: 6/10 LOCATION: Left Abdomen TECHNIQUE: Volumetric scanning of the abdomen and pelvis was performed. Using automated exposure control and ad justment of the mA and/or kV according to patient size, radiation dose was kept as low as reasonably achievable to obtain optimal diagnostic quality images. FINDINGS: LOWER LUNGS: The visualized lower lungs are clear. LIVER: Homogeneous density without lesion. There is no dilation of the biliary tree. No calcified gallston es. SPLEEN: Normal size without lesion. PANCREAS: Within normal limits. KIDNEYS: Normal in size and shape. There is no mass, stone, or hydronephrosis. ADRENAL GLANDS: Within normal limits. VASCULAR: There is no aortic aneurysm. BOWEL/MESENTERY: The stomach, small bowel, and colon demonstrate no acute abnormality. There is no free intraperitone al air or fluid. ABDOMINAL WALL: Anterior abdominal wall is intact. There is a large inhomogeneous soft tissue density mass centered i n the lateral abdominal musculature. This is mildly heterogeneous. This measures up to 9.3 x 5.2 x 7. 5 cm in greatest AP by transverse by caudal cranial dimension. musculature. The mass displaces the ad jacent bowel to the right. RETROPERITONEUM: There is no lymphadenopathy. BLADDER: No wall thickening or mass. REPRODUCTIVE: Within normal limits. INGUINAL: There is no lymphadenopathy or hernia. MUSCULOSKELETAL: Within normal limits for patient age. CONCLUSION: Large inhomogeneous soft tissue density mass centered in the left lateral abdominal m usculature most rectum is thick of a large hematoma. Eliazar Ellsworth MD on June 12, 2016 at 14:43 Board Certified Radiologist. This report was verified electronically.
[2016-06-12] MEDS: AZITHROMYCIN INJ 500 MG in SODIUM CHLOR 0.9% 250 ML INJ 250 ML IV SCH (20:38)
[2016-06-12] MEDS: cefTRIAXone INJ 1,000 MG in SODIUM CHLORIDE 0.9% INJ 100 ML IV SCH (22:02)
[2016-06-13] VITALS (8 sets, daily range): BP systolic 141–178; BP diastolic 70–98; PULSE 60–100; RESP 17–20; TEMP 97.5–98.9; O2SAT 93–98
[2016-06-13] MEDS: methylPREDNISolone SOD SUCC 40 MG/1 ML VIAL IV PUSH SCH ×5 (00:03→23:00)
[2016-06-13] MEDS: MORPHINE SULFATE 4 MG/ML INJ IV PUSH PRN ×4 (00:03→18:24)
[2016-06-13 05:42] LABS: HEMATOCRIT 34.2 % (39.0-51.0); MEAN CELL VOLUME 89.1 FL (80.0-100.0); MEAN CORPUSCULAR HEMOGLOBIN 29.3 PG (27.0-34.0); MEAN CORPUSCULAR HGB CONC 32.9 % (32.0-36.0); PLATELET COUNT 203 TH/MM3 (150-450); RED BLOOD COUNT 3.83 MIL/MM3 (4.50-5.90); RED CELL DISTRIBUTION WIDTH 13.5 % (11.6-17.2); REVIEW FLAG FINAL; WHITE BLOOD COUNT 19.4 TH/MM3 (4.0-11.0)
[2016-06-13 05:48] LABS: BICARBONATE 29.4 MEQ/L (21.0-32.0); POTASSIUM 4.2 MEQ/L (3.5-5.1)
[2016-06-13] MEDS: LISINOPRIL 5 MG TAB PO SCH (08:21)
[2016-06-13] MEDS: FAMOTIDINE 20 MG TAB PO SCH ×2 (08:21→20:55)
[2016-06-13] MEDS: SODIUM CHLORIDE 0.9% FLUSH 5 ML FLUSH FLUSH SCH ×2 (08:21→20:55)
[2016-06-13] MEDS: BUDESONIDE-FORMOTEROL 80/4.5 MCG INHALER INH SCH ×2 (08:21→20:56)
[2016-06-13] MEDS: guaiFENesin E.R. 600 MG TAB PO SCH ×2 (08:21→20:55)
--- NOTE | 2016-06-13 11:39 | HHI.PR ---
Subjective Remarks Patient has left-sided abdominal pain with some swelling improving Had normal bowel movement this morning No genitourinary symptoms No nausea vomiting still with some cough dry wheezing less than yesterday still weak no cp no fever Review of system for 12 point system otherwise unremarkable Objective Objective Results - Vital Signs Date Time Temp Pulse Resp B/P Pulse Ox O2 Delivery O2 Flow Rate FiO2 06/13/16 10:40 96 Nasal Cannula 2.00 06/13/16 08:29 94 Nasal Cannula 1.00 Humidified 06/13/16 08:00 98.4 71 17 167/86 94 06/13/16 04:00 97.5 100 20 156/98 93 06/13/16 02:07 18 06/13/16 00:00 97.6 64 20 149/70 98 06/12/16 20:35 57 06/12/16 20:35 Nasal Cannula 1.00 21 06/12/16 20:29 97 Nasal Cannula 2.00 06/12/16 20:00 98.2 66 20 142/86 99 06/12/16 16:00 97.4 75 16 130/70 98 06/12/16 12:00 97.4 88 17 189/102 95 I/O 06/12/16 06/12/16 06/12/16 06/13/16 06/13/16 06/13/16 07:00 15:00 23:00 07:00 15:00 23:00 Intake Total 380 ml 1960 ml 240 ml 480 ml Output Total 4 ml Balance 380 ml 1956 ml 240 ml 480 ml Intake Oral 380 ml 1960 ml 240 ml 480 ml IV Total 0 ml 0 ml Output Urine Total 4 ml # Voids 2 3 2 # Bowel Movements 1 1 Result Diagram: 06/13/16 0352 06/13/16 0352 Imaging Last Impressions Chest X-Ray 06/08/16 1851 Signed Impressions: Service Date/Time: Wednesday, June 08, 2016 20:02 - CONCLUSION: No acute disease. Romel Ya MD Other Results Laboratory Tests Test 06/13/16 03:52 White Blood Count 19.4 Red Blood Count 3.83 Hemoglobin 11.2 Hematocrit 34.2 Mean Corpuscular Volume 89.1 Mean Corpuscular Hemoglobin 29.3 Mean Corpuscular Hemoglobin 32.9 Concent Red Cell Distribution Width 13.5 Platelet Count 203 Mean Platelet Volume 10.2 Sodium Level 140 Potassium Level 4.2 Chloride Level 103 Carbon Dioxide Level 29.4 Anion Gap 8 Blood Urea Nitrogen 31 Creatinine 0.86 Estimat Glomerular Filtration 88 Rate Random Glucose 115 Calcium Level 8.8 Date/Time Procedure Status Source Growth 06/08/16 19:11 Influenza Types A,B Antigen (SONAL) - Final Complete Nasal Washing NEGATIVE FOR FLU A AND B ANTIGEN.... 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 SKIN: No rashes, ecchymoses or lesions. Cool and dry. HEAD: Atraumatic. Normocephalic. No temporal or scalp tenderness. EYES: Pupils equal round and reactive. Extraocular motions intact. No scleral icterus. No injection or drainage. ENT: Nose without purulent drainage. Airway patent. NECK: Trachea midline. No JVD or lymphadenopathy. Supple, nontender, no meningeal signs. CARDIOVASCULAR: Regular rate and rhythm without murmurs, gallops, or rubs. RESPIRATORY: Scattered rhonchi, scattered few expiratory wheezes GASTROINTESTINAL: Abdomen soft, tender to palpation left sided abdomen. Nondistended. No hepato-splenomegaly. No guarding. MUSCULOSKELETAL: Extremities without clubbing, cyanosis, or edema. No joint tenderness, effusion, or edema noted. No calf tenderness. Negative Homans sign bilaterally. NEUROLOGICAL: Awake and alert. Cranial nerves II through XII intact. Motor and sensory grossly within normal limits. Five out of 5 muscle strength in all muscle groups. Normal speech. A/P Assessment and Plan (1) COPD with acute exacerbation (2) Leukocytosis (3) Tobacco abuse (4) Hypertension (5) History of ETOH abuse (6) Liver disease Plan 71-year-old male with history of COPD and tobacco abuse. Presented to emergency room with increased cough, wheezing. Admitted with COPD exacerbation Continue DuoNeb's -Solu-Medrol 40 mg IV every 6 Will decrease dose -Continue with empiric antibiotics -Teslilia Navarro -Mucinex 200 mg by mouth twice a day -Continue Symbicort -Tobacco abuse counseling completed Tobacco abuse -Tobacco abuse counseling completed, -Patient wants nicotine patch will prescribe Hypertension, slightly high will monitor Continue home medications History of alcohol abuse, endorses history of liver disease Needs to abstain from drinking LFTs stable Complaining of left-sided abdominal pain, left quadrant, secondary to large hematoma and lateral abdominal wall. Having regular bowel movements, no abnormality noted during assessment. Patient states he was due to have some type of GI procedure as outpatient Mild ileus on KUB. Report of CT abdomen/pelvis reviewed. Morphine on a when necessary basis for pain. Continue current management and monitor. Plan for surgical consult DC'd Lovenox now on SCD for DVT prophylaxis Patient not ready for discharge, remained symptomatic with wheezing and cough, also has abdominal wall hematoma will monitor, continue with above treatment Labs reviewed Anemia secondary to acute blood loss and abdominal wall. Will monitor Increase WBC count secondary to steroid improving D/W RN D/W pt Munir Lorenz MD Jun 13, 2016 11:39
[2016-06-13] MEDS: NICOTINE 21 MG/24 HR PATCH TD SCH (12:31)
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
[2016-06-13] MEDS: cloNIDine HCL 0.1 MG TAB PO PRN (20:55)
[2016-06-13] MEDS: AZITHROMYCIN INJ 500 MG in SODIUM CHLOR 0.9% 250 ML INJ 250 ML IV SCH (20:55)
[2016-06-13] MEDS: cefTRIAXone INJ 1,000 MG in SODIUM CHLORIDE 0.9% INJ 100 ML IV SCH (20:56)
[2016-06-13] MEDS ORDERED: REMOVE OLD NICODERM (NICOTINE) PATCH TD SCH (21:00)
[2016-06-14] VITALS: BP 142/78; PULSE 57; RESP 18; TEMP 98.7; O2SAT 98
[2016-06-14 05:06] LABS: MEAN CELL VOLUME 88.8 FL (80.0-100.0); MEAN CORPUSCULAR HEMOGLOBIN 29.4 PG (27.0-34.0); MEAN CORPUSCULAR HGB CONC 33.1 % (32.0-36.0); PLATELET COUNT 225 TH/MM3 (150-450); RED BLOOD COUNT 4.06 MIL/MM3 (4.50-5.90); RED CELL DISTRIBUTION WIDTH 13.5 % (11.6-17.2); REVIEW FLAG FINAL; WHITE BLOOD COUNT 21.6 TH/MM3 (4.0-11.0)
[2016-06-14] MEDS: methylPREDNISolone SOD SUCC 40 MG/1 ML VIAL IV PUSH SCH (06:16)
[2016-06-14 08:00] VITALS: BP 184/82; PULSE 69; RESP 16; TEMP 97.3; O2SAT 97
[2016-06-14] MEDS: FAMOTIDINE 20 MG TAB PO SCH (09:02)
[2016-06-14] MEDS: guaiFENesin E.R. 600 MG TAB PO SCH (09:02)
[2016-06-14] MEDS: LISINOPRIL 5 MG TAB PO SCH (09:02)
[2016-06-14] MEDS: BUDESONIDE-FORMOTEROL 80/4.5 MCG INHALER INH SCH (09:03)
[2016-06-14] MEDS: NICOTINE 21 MG/24 HR PATCH TD SCH (09:03)
[2016-06-14] MEDS: SODIUM CHLORIDE 0.9% FLUSH 5 ML FLUSH FLUSH SCH (09:03)
[2016-06-14 09:09] VITALS: O2SAT 92
--- NOTE | 2016-06-14 09:20 | HHI.PR ---
Subjective Remarks Patient has less left-sided abdominal pain with less swelling Had normal bowel movement this morning No genitourinary symptoms No nausea vomiting still with some cough dry wheezing better Better weakness more energy no cp no fever Wants to go home today Review of system for 12 point system otherwise unremarkable Objective Objective Results - Vital Signs Date Time Temp Pulse Resp B/P Pulse Ox O2 Delivery O2 Flow Rate FiO2 06/14/16 08:00 97.3 69 16 184/82 97 06/14/16 00:00 98.7 57 18 142/78 98 142/78 06/13/16 20:00 Nasal Cannula 1.00 Humidified 06/13/16 20:00 60 06/13/16 20:00 98.1 72 18 178/91 98 06/13/16 17:40 96 21 06/13/16 16:00 98.0 73 17 168/95 96 06/13/16 12:00 98.9 71 18 141/79 97 06/13/16 10:40 96 Nasal Cannula 2.00 I/O 06/13/16 06/13/16 06/13/16 06/14/16 06/14/16 06/14/16 07:00 15:00 23:00 07:00 15:00 23:00 Intake Total 480 ml 1100 ml 592 ml 120 ml Balance 480 ml 1100 ml 592 ml 120 ml Intake Oral 480 ml 1100 ml 240 ml 120 ml IV Total 0 ml 352 ml 0 ml # Voids 2 4 2 1 # Bowel Movements 1 2 0 0 Result Diagram: 06/14/16 0345 06/13/16 0352 Imaging Last Impressions Chest X-Ray 06/08/16 1851 Signed Impressions: Service Date/Time: Wednesday, June 08, 2016 20:02 - CONCLUSION: No acute disease. Romel Ya MD Other Results Laboratory Tests Test 06/14/16 03:45 White Blood Count 21.6 Red Blood Count 4.06 Hemoglobin 11.9 Hematocrit 36.0 Mean Corpuscular Volume 88.8 Mean Corpuscular Hemoglobin 29.4 Mean Corpuscular Hemoglobin 33.1 Concent Red Cell Distribution Width 13.5 Platelet Count 225 Mean Platelet Volume 10.3 Physical Exam Physical Exam GENERAL: This is a well-nourished, well-developed patient, in no apparent distress. SKIN: No rashes, ecchymoses or lesions. Cool and dry. HEAD: Atraumatic. Normocephalic. No temporal or scalp tenderness. EYES: Pupils equal round and reactive. Extraocular motions intact. No scleral icterus. No injection or drainage. ENT: Nose without purulent drainage. Airway patent. NECK: Trachea midline. No JVD or lymphadenopathy. Supple, nontender, no meningeal signs. CARDIOVASCULAR: Regular rate and rhythm without murmurs, gallops, or rubs. RESPIRATORY: Occasional rhonchi, occasional expiratory wheezes GASTROINTESTINAL: Abdomen soft, mildly tender to palpation left sided abdomen. Nondistended. No hepato-splenomegaly. No guarding. MUSCULOSKELETAL: Extremities without clubbing, cyanosis, or edema. No joint tenderness, effusion, or edema noted. No calf tenderness. Negative Homans sign bilaterally. NEUROLOGICAL: Awake and alert. Cranial nerves II through XII intact. Motor and sensory grossly within normal limits. Five out of 5 muscle strength in all muscle groups. Normal speech. A/P Assessment and Plan (1) COPD with acute exacerbation (2) Leukocytosis (3) Tobacco abuse (4) Hypertension (5) History of ETOH abuse (6) Liver disease Plan 71-year-old male with history of COPD and tobacco abuse. Presented to emergency room with increased cough, wheezing. Admitted with COPD exacerbation On DuoNeb's -On steroid -empiric antibiotics -Teslilia Navarro -Mucinex 200 mg by mouth twice a day -Continue Symbicort -Tobacco abuse counseling completed Tobacco abuse -Tobacco abuse counseling completed, -Patient wants nicotine patch will prescribe Hypertension, slightly high will monitor Continue home medications History of alcohol abuse, endorses history of liver disease Needs to abstain from drinking LFTs stable Complaining of left-sided abdominal pain, left quadrant, secondary to large hematoma and lateral abdominal wall. Having regular bowel movements, no abnormality noted during assessment. Patient states he was due to have some type of GI procedure as outpatient Mild ileus on KUB. Report of CT abdomen/pelvis reviewed. Appreciate surgical consult Off of Lovenox now on SCD for DVT prophylaxis Overall stable condition Labs reviewed Anemia secondary to acute blood loss and abdominal wall. Stable H&H Increase WBC count secondary to steroid D/W RN D/W pt Sy discharge him home to be followed by his primary care doctor and surgery as outpatient. Counseled about anti-smoking. Also counseled about not drinking. Patient understood. Munir Lorenz MD Jun 14, 2016 09:19
[2016-06-14] MEDS ORDERED: ZITH500T PO (09:26)
[2016-06-14] MEDS ORDERED: PRED10PA PO (09:26)
[2016-06-14] MEDS ORDERED: FAMO20TA2 PO (09:26)
--- NOTE | 2016-06-14 09:29 | HHI.DS ---
Discharge Summary Admission Date Jun 08, 2016 at 21:12 Admitting Diagnosis acute exacerbation COPD (1) COPD with acute exacerbation Diagnosis: Principal (2) Leukocytosis Diagnosis: Principal (3) Tobacco abuse Diagnosis: Principal (4) Hypertension Diagnosis: Principal (5) History of ETOH abuse Diagnosis: Principal (6) Liver disease Diagnosis: Principal Brief History This is a 71-year-old male with past medical history of tobacco abuse, COPD, hypertension, liver disease. Patient presented to the emergency room with complaint of cough and shortness of breath for the last 2 days. Patient indicates that he continues to smoke, however he has cut down to 3-4 cigarettes a day. He's noted increased cough with very little sputum, shortness of breath , chest discomfort associated with increased coughing. He's noted increased wheezing, has been using albuterol nebulizer at home. Denies any fever, no chills. She was admitted with a COPD exacerbation with hypoxia. She was put on appropriate medication including a steroid and antibiotic for bronchitis. Patient was improving slowly. She was kept on Lovenox for DVT prophylaxis. Patient has left-sided abdominal pain. For which CT scan of the abdomen was done. Which shows lateral abdominal muscle wall hematoma. Surgical consultation was called in. Patient is improving. There is no need for any intervention. As for surgery can follow them as outpatient. Patient is significantly improved. As patient is in stable and good condition plan to discharge him home to be followed by his primary care doctor and surgery as outpatient. Counseled about anti-smoking and also advised not to drink at all. Patient understood very well. CBC/BMP: 06/14/16 0345 06/13/16 0352 Significant Findings Laboratory Tests Test 06/13/16 06/14/16 03:52 03:45 White Blood Count 19.4 TH/MM3 21.6 TH/MM3 (4.0-11.0) (4.0-11.0) Red Blood Count 3.83 MIL/MM3 4.06 MIL/MM3 (4.50-5.90) (4.50-5.90) Hemoglobin 11.2 GM/DL 11.9 GM/DL (13.0-17.0) (13.0-17.0) Hematocrit 34.2 % 36.0 % (39.0-51.0) (39.0-51.0) Blood Urea Nitrogen 31 MG/DL (7-18) Estimat Glomerular Filtration 88 ML/MIN (>89) Rate Random Glucose 115 MG/DL (74-106) Pt Condition on Discharge: Good Discharge Disposition: Discharge Home Discharge Instructions DIET: Follow Instructions for: Heart Healthy Diet Activities you can perform: Weight Bearing as Derik Follow up Referrals: PCP Follow-up - 3-5 Days Surgical - 4 Weeks New Medications: Azithromycin (Zithromax) 500 Mg Tab 500 MG PO DAILY Infection #4 Ref 0 TAB Prednisone (21) 10 mg tab Dose Pack (Prednisone (21) 10 mg tab Dose Pack) 10 Mg Pack 10 MG PO DIRECTED Inflammation #1 Ref 0 DSPK Famotidine (Famotidine) 20 Mg Tab 20 MG PO DAILY gerd #30 TAB Continued Medications: Budesonide-Formoterol Inh (Symbicort Inh) 80-4.5 Mcg/Act Aero 1 PUFF INH Q12HR Asthma Management #1 Ref 0 INHALER Lisinopril (Lisinopril) 5 Mg Tab 5 MG PO DAILY Blood Pressure Management #30 Ref 0 TAB Discontinued Medications: Meloxicam (Mobic) 7.5 Mg Tab 7.5 MG PO DAILY Pain Ref 0 TAB Munir Lorenz MD Jun 14, 2016 09:29
== END 2016-06-14 11:41 | disposition home or self-care (01) | DRG 191 ==
LOC: NEPA 18:46 → NEDA 21:12 → N07A 22:29
PROVIDERS: ADMIT Specialist; ATTEND Specialist
DX: J44.1 Chronic obstructive pulmonary disease with (acute) exacerbation (principal); K56.7 Ileus, unspecified; D62 Acute posthemorrhagic anemia; I10 Essential (primary) hypertension; S30.1XXA Contusion of abdominal wall, initial encounter; D72.828 Other elevated white blood cell count; F10.10 Alcohol abuse, uncomplicated; F17.210 Nicotine dependence, cigarettes, uncomplicated; J45.909 Unspecified asthma, uncomplicated; W17.89XA Other fall from one level to another, initial encounter; K76.9 Liver disease, unspecified
CPT/HCPCS: 36600; 71010; 74000; 74176; 80048; 80053; 82805; 83880; 85025; 85027; 85610; 85730; 87040; 87804; 93005; 94620; 94640; 94664; J0456; J0696; J1650; J2270; J2920; J7050; Q9963

== ENCOUNTER 2016-06-22 12:45 | Emergency (ER) | payer MEDICAID, MEDICARE ==
[~2016-06-22] VITALS: Ht 170.2 cm; Wt 72.7 kg
[~2016-06-22 12:45] MED LIST changes: +FAMO20TA2 PO; -MOBI7.5T PO; +PRED10PA PO; +ZITH500T PO
[2016-06-22 12:49] VITALS: BP 128/78; PULSE 75; RESP 14; TEMP 98.1; O2SAT 98
== END 2016-06-22 14:38 | disposition left against medical advice (07) ==
LOC: NED 12:45
DX: R21 Rash and other nonspecific skin eruption (principal)
CPT/HCPCS: 99281